=== PATIENT | female | born 1960 | race Caucasian/White ===

== ENCOUNTER 2017-01-17 13:48 | Inpatient (IN) | payer MEDICARE ==
[2017-01-17 14:18] LABS: ABSOLUTE LYMPHOCYTES (AUTO) 0.8 10^3/uL (0.5-4.7); ABSOLUTE MONOCYTES (AUTO) 0.3 10^3/uL (0.1-1.4); ABSOLUTE NEUT (AUTO) 9.8 10^3/uL (1.7-8.2); BASOPHILS % (AUTO) 0.4 % (0-2); HEMATOCRIT 42.7 % (36.0-47.0); HEMOGLOBIN 14.4 g/dL (12.0-15.5); HGB HCT DIFFERENCE 0.5; LYMPHOCYTES % (AUTO) 7.6 % (13-45); MEAN CORPUSCULAR HEMOGLOBIN 30.8 pg (27.0-33.4); MEAN CORPUSCULAR HGB CONC 33.8 g/dL (32.0-36.0); MEAN CORPUSCULAR VOLUME 91 fl (80-97); MONOCYTES % (AUTO) 2.7 % (3-13); RED BLOOD COUNT 4.68 10^6/uL (3.72-5.28); RED CELL DISTRIBUTION WIDTH 12.9 % (11.5-14.0); SEGMENTED NEUTROPHILS % (AUTO) 89.3 % (42-78)
[2017-01-17 14:26] LABS: PROTHROMBIN TIME 12.7 SEC (11.4-15.4)
[2017-01-17 14:27] LABS: PARTIAL THROMBOPLASTIN TIME 21.7 SEC (23.5-35.8)
[2017-01-17 14:37] LABS: ALANINE AMINOTRANSFERASE 28 U/L (9-52); ALBUMIN 3.2 g/dL (3.5-5.0); ALKALINE PHOSPHATASE 141 U/L (38-126); ANION GAP 11 (5-19); ASPARTATE AMINO TRANSFERASE 26 U/L (14-36); BILIRUBIN,DIRECT 0.5 mg/dL (0.0-0.4); BLOOD UREA NITROGEN 16 mg/dL (7-20); CALCIUM 9.6 mg/dL (8.4-10.2); CARBON DIOXIDE 27 mmol/L (22-30); CHLORIDE 102 mmol/L (98-107); CREATINE KINASE 70 U/L (30-135); CREATININE RESULT 0.91 mg/dL (0.52-1.25); SODIUM 140.1 mmol/L (137-145); TOTAL PROTEIN 6.8 g/dL (6.3-8.2)
[2017-01-17 14:45] LABS: GLUCOSE 549 mg/dL (75-110)
[2017-01-17] MEDS ORDERED: NORMAL SALINE 1000 ML 1,000 ML IV ONE (14:49)
[2017-01-17] MEDS ORDERED: LABETALOL HCL INJ 20 MG/4 ML DISP.SYRIN IV ONE (14:57)
[2017-01-17] MEDS ORDERED: INSULIN LISPRO 100 UNIT/ML 3 ML VIAL SUBCUT ONE (14:57)
--- NOTE | 2017-01-17 14:57 | ER Document Report ---
ED Neuro Symptoms/Deficit - General Chief Complaint: Fall Stated Complaint: DIFFICULTY BREATHING Time Seen by Provider: 01/17/17 14:02 Notes: The patient is a 56-year-old female, past medical history HTN, IDDM, HLD, multiple psychiatric disorders, presents with 6 hours of left-sided weakness and a right gaze that started after she hit the front part of her head earlier today. She is not on any blood thinners. Patient fluctuates between lucidity and agitation, which has been chronic according to her and father at bedside. She denies headache, LOC, neck pain, numbness, tingling, blurry vision , difficulty swallowing, chest pain or shortness of breath. - Related Data Allergies/Adverse Reactions: lorazepam [From Ativan] Allergy (Verified 01/17/17 16:16) Penicillins Allergy (Verified 01/17/17 16:18) Past Medical History - General Information source: Patient - Social History Smoking Status: Current Every Day Smoker Chew tobacco use (# tins/day): No Frequency of alcohol use: None Drug Abuse: None Family History: Reviewed & Not Pertinent - Past Medical History Cardiac Medical History: Reports: Hx Hypertension Neurological Medical History: Reports: Hx Migraine, Hx Seizures Endocrine Medical History: Reports: Hx Diabetes Mellitus Type 2 GI Medical History: Reports: Hx Gastroesophageal Reflux Disease Surgical Hx: Other Review of Systems - Review of Systems Notes: REVIEW OF SYSTEMS: CONSTITUTIONAL: -fevers, -chills EENT: +forced right gaze deviation, -eye pain, -difficulty swallowing, -nasal congestion CARDIOVASCULAR: -chest pain, -syncope. RESPIRATORY: -cough, -SOB GASTROINTESTINAL: -abdominal pain, -nausea, -vomiting, -diarrhea GENITOURINARY: -dysuria, -hematuria MUSCULOSKELETAL: -back pain, -neck pain SKIN: -rash or skin lesions. HEMATOLOGIC: -easy bruising or bleeding. LYMPHATIC: -swollen, enlarged glands. NEUROLOGICAL: -altered mental status or loss of consciousness, -headache, +left- sided weakness PSYCHIATRIC: -anxiety, -depression. ALL OTHER SYSTEMS REVIEWED AND NEGATIVE. Physical Exam - Vital signs Vitals: Pulse Resp BP Pulse Ox 102 H 20 216/93 H 98 01/17/17 14:08 01/17/17 14:08 01/17/17 14:08 01/17/17 14:08 - Notes Notes: PHYSICAL EXAMINATION: GENERAL: In no acute distress. Intermittent periods of agitation. HEAD: Small abrasion over nose. EYES: Pupils equal round and reactive to light, forced right eye gaze deviation , sclera anicteric, conjunctiva are normal. ENT: nares patent, oropharynx clear without exudates. Moist mucous membranes. NECK: Normal range of motion, supple without lymphadenopathy LUNGS: Breath sounds clear to auscultation bilaterally and equal. No wheezes rales or rhonchi. HEART: Tachycardia, regular rhythm ABDOMEN: Soft, nontender, normoactive bowel sounds. No guarding, no rebound. No masses appreciated. EXTREMITIES: Normal range of motion, no pitting or edema. No cyanosis. NEUROLOGICAL: Forced right eye deviation, 5/5 strength in RUE and RLE. 1/5 strength in LUE and LLE. No sensory changes. SKIN: Warm, Dry, normal turgor, no rashes or lesions noted. Course - Re-evaluation Re-evalutation: Patient has evidence of a right MCA stroke with right forced gaze deviation and loss of strength in her left arms and legs. She said that the onset of symptoms started 6 hours prior to arrival to the emergency room after she fell and hit her head. CT and CTA did not show any evidence of bleeds or clots. She is not a TPA candidate due to 6 hours of symptoms. ABCD2 score is 6. She did not take her lunchtime Humalog and this was provided to her due to her blood sugar of 500s. In addition, she is very hypertensive and cannot remember if she took her home blood pressure medications. Due to her intermittent agitation and uncooperativeness, a dose of Ativan was given to help obtain the CT reads. She had a brief period of hypoxia down to 75%, which quickly improved with jaw thrust and nasal cannula. Suspect a component of sleep apnea also. Unable to give her home blood pressure medications and IV labetalol only mildly improved her blood pressure. Started patient on Cardene drip because patient's blood pressure was in the 200s with a goal of keeping her SBP between 160-180 due to permissive hypertension in a suspected ischemic CVA. 01/17/17 19:[address] Vail and he has accepted patient to ICU. - Vital Signs Vital signs: Temp Pulse Resp BP Pulse Ox 100.3 F 102 H 23 H 219/101 H 100 01/17/17 14:14 01/17/17 14:14 01/17/17 14:24 01/17/17 14:24 01/17/17 14:24 - Laboratory Result Diagrams: 01/17/17 14:00 01/17/17 14:00 Laboratory results interpreted by me: 01/17/17 01/17/17 01/17/17 14:00 14:00 14:00 WBC 11.0 H Seg Neutrophils % 89.3 H Lymphocytes % 7.6 L Monocytes % 2.7 L Absolute Neutrophils 9.8 H APTT 21.7 L Glucose 549 H* Direct Bilirubin 0.5 H Alkaline Phosphatase 141 H Albumin 3.2 L - Diagnostic Test Radiology reviewed: Image reviewed, Reports reviewed - EKG Interpretation by Me EKG shows normal: Intervals, ST-T Waves Rate: Tachycardia [place]/QRS: Left axis deviation Voltage: Consistant with LVH Critical Care Note - Critical Care Note Total time excluding time spent on procedures (mins): 55 ED [employer]/Exc Criteria - Date/Time patient last known well: Date/Time: 01/17/17 07:00 - Date/Time patient arrived in ED: _: 01/17/17 13:45 - Inclusion Criteria: 1: Patient presented to ED within 3 hours of acute ischemic stroke symptom onset ? -: No 2: Did baseline CT exclude intracranial hemorrhage and/or other risk factors? -: Yes 3: Is the age of the patient 18 years of age or greater? -: Yes : If any of the above questions are answered "NO" then stop, patient is not a candidate for Alteplase, : If all of the above questions are answered "YES" then continue with Exclusion Criteria. - Exclusion Criteria: 1: Is there evidence of intracranial hemorrhage on baseline CT? 2: Is there suspicion of subarachnoid hemorrhage (even if CT negative)? 3: Is there a history of serious head trauma, recent previous stroke or TX within 3 months? 4: Does the patient have a clinical presentation consistent with TX or post-TX pericarditis? 5: Is there history of intracranial hemorrhage? 6: On repeated measurement is Systolic BP greater than 185mmHg or Diastolic BP greater that 110 mmHg and is aggressive treatment needed to reduce blood pressure to these limits (e.g. constant infusion of an anti-hypertensive)? 7: Did the patient awake with stroke symptoms? 8: Has the patient had a lumbar puncture or an arterial puncture at a non- compressile site within 7 days? 9: With in the last 14 days did the patient have surgery or major trauma? 10: Is the patient or less than 2 weeks? 11: Was there any active bleeding or acute trauma? 12: Does the patient have intracranial neoplasm, arteriovenous malformation or aneurysm? 13: Does the patient have abnormal glucose (less than 50 or greater than 400mg/ dl)? Record glucose in Comment. 14: Patient has rapidly improving symptoms at the time Alteplase is to be Administered. 15: Does the patient have any risks for bleeding, including but not limited to: a.: Current use of Coumadin with PT greater than 15 seconds or INR greater than 1.7. b.: Current use of Pradaxa (Dabigatran). c.: Heparin administereed within the past 48 hours and PTT elevated. d.: Platelet count less than 100,000/mm. e.: Major surgery or serious trauma within 14 days. f.: Gastrointestinal or gynecological urinary bleeding within 14 days. g.: Myocardial Infarction (TX) within 3 months. : If the answer to any of the above questions is "YES" then stop, the patient is not a candidate for Alteplase. : If the answer to all of the above questions is "NO" then the patient may be eligible for the Administration of Alteplase. : If the patient is noted to have seizure activity at onset of Stroke symptoms; Consult Neurologist for further evaluation. - The patient is: -: Included and is eligible to receive Alteplase. *Initiate bed placement at higher level of care* --: No Reviewd risks & benefits of thrombolytic therapy: I have reviewed the risks and benefits of thrombolytic therapy with the patient and/or his/her family. -: Excluded and not eligible to receive Alteplase for the above exclusions. -: Excluded and not eligible to receive Alteplase for other reasons (specify in comments): - Diagnosis of TIA: -: Patient presented with transient symptoms that are now resolved and no other neurologic findings are currently present. List symptoms in comments. -: Patient is NOT a candidate for tPA. -: ____(put name in comment) has been consulted for admission and continued evaluation of risk factor assessment. Comment: [facility] ED NIH Stroke Scale - NIH Stroke Scale When completed:: Before Alteplase *: 1. NIH scale should be completed with appropriate accompanying assessment tools. *: 2. The NIH should reflect what the patient is capable of doing and should not be coached by the clinician. 1a. Level of Consciousness: 0=Alert;keenly responsive -: 1=Drowsy -: 2=Obtunded -: 3=Coma/unresponsive or reflex to noxious stimuli. 1a. Responses: 0 1b. Orientation Questions: a. What month is it? -: b. How old are you? -: 0=Answers both questions correctly. -: 1=Answers one question correctly or patient is intubated or has orotracheal trauma. -: 2=Answers neither question correctly. 1b. Responses: 0 1c. Response to commands: a. Open and close eyes? -: b. Legal Department Manager and release hand? -: Credit is given despite weakness. Demonstration of task is permitted. Substitute command if hands cannot be used. -: 0=Performs both tasks correctly -: 1=Performs one task correctly -: 2=Performs neither task correctly 1c. Responses: 0 2. Gaze: Establish eye contact and instruct patient to "Follow my finger" -: 0=Normal -: 1=Partial gaze palsy. Gaze is abnormal in one or both eyes, but where forced deviation or total gaze paresis is not present. -: 2=Forced deviation or total gaze paresis. 2. Responses: 2 3. Visual [place]: Sees fingers in all four quadrants. -: 0=No visual loss. -: 1=Partial hemianopsia. -: 2=Complete hemianopsia. -: 3=Bilateral hemianopsia (including Cortical blindness) 3. Responses: 0 4. Facial Movement: Instruct patient to: -: a. Show me your teeth -: b. Raise your eyebrows -: c. Close your eyes -: d. Smile -: 0=Normal symmetrical movement -: 1=Minor paralysis (flattened nasolabial fold, asymmetry on smiling). -: 2=Partial paralysis (total or near total paralysis of lower face). -: 3=Complete paralysis of upper and lower face 4. Responses: 0 5. Motor functions (left arm): Alternate sides and extend each arm with palms down (90 degrees if sitting or 45 degrees for supine). -: 0=No drift;limb holds for full 10 seconds. -: 1=Drift; limb holds but drifts down before full 10 seconds, but does not hit bed. -: 2=Some effort against gravity; limb cannot get to or maintain position. -: 3=No effort against gravity; limb falls. -: 4=No movement. -: UN=Amputation, joint fusion, explain in comments. 5. Responses (left arm): 4 5. Motor Functions (right arm): Alternate sides and extend each arm with palms down (90 degrees if sitting or 45 degrees for supine). -: 0=No drift;limb holds for full 10 seconds. -: 1=Drift; limb holds but drifts down before full 10 seconds, but does not hit bed. -: 2=Some effort against gravity; limb cannot get to or maintain position. -: 3=No effort against gravity; limb falls. -: 4=No movement. -: UN=Amputation, joint fusion, explain in comments. 5. Responses (right arm): 0 6. Motor Functions (left leg): With patient lying supine, alternate sides and extend each leg (30 degrees always while supine). -: 0=No drift, leg holds position for full 5 seconds -: 1=Drift; leg falls before full 5 seconds but does not hit bed. -: 2=Some effort against gravity, leg falls to bed but some effort against gravity. -: 3=No effort against gravity, leg falls to bed immediately. -: 4=No movement. -: UN=Amputation, joint fusion; explain in comments. 6. Responses (left leg): 4 6. Motor Functions (right leg): With patient lying supine, alternate sides and extend each leg (30 degrees always while supine). -: 0=No drift, leg holds position for full 5 seconds -: 1=Drift; leg falls before full 5 seconds but does not hit bed. -: 2=Some effort against gravity, leg falls to bed but some effort against gravity. -: 3=No effort against gravity, leg falls to bed immediately. -: 4=No movement. -: UN=Amputation, joint fusion; explain in comments. 6. Responses (right leg): 0 7. Limb Ataxia: With eyes open instruct patient to: -: a. "Touch your finger to your nose". -: b. "Touch your heel to your pisano" -: 0=Absent -: 1=Present in one limb. -: 2=Present in two limbs. -: UN=Amputation or joint fusion; explain in comments. 7. Responses: 0 - Unable to test in left arm 8. Sensory: Test sensation using pinprick or noxious stimuli. Test as many body parts as possible. -: 0=Normal;no sensory loss -: 1=Mile to moderate sensory loss (patient feels pin prick but is less sharp on affected side). -: 2=Severe or total sensory loss. 8. Responses: 0 9. Best Language: Instruct patient to: -: a. "Describe what you see in this picture." -: b. "Name the items in this picture." -: c. "Read these sentences." -: 0=No aphasia, normal -: 1=Mild to moderate aphasia. -: 2=Severe aphasia -: 3=Mute, global aphasia, no usable speech or auditory comprehension. 9. Responses: 0 10. Articulation, Dysarthia: Instruct patient to: -: "Read these words" or "Repeat these words" -: 0=Normal -: 1=Mild to moderate; patient may slur some words but can be understood without difficulty. -: 2=Severe; patients speech so slurred as to be unintelligible in the absence of dysphasia. -: UN=Intubated or other physical barrier, explain in comments. 10. Responses: 0 11. Extinction or inattention: 0=No abnormality -: 1= Visual, tactile, auditory, spatial, or personal inattention or extinction to bilateral simulation in one or the sensory modalities. -: 2=Profound jesús-inattention or jesús-inattention to more than one modality; does not recognize own hand. 11. Responses: 0 Total Score: 10 Discharge - Discharge Clinical Impression: Hyperglycemia CVA (cerebral vascular accident) Qualifiers: CVA mechanism: unspecified Qualified Code(s): I63.9 - Cerebral infarction, unspecified Hypertension Qualifiers: Hypertension type: unspecified secondary hypertension Qualified Code(s): I15.9 - Secondary hypertension, unspecified Condition: Serious Disposition: ADMITTED INPATIENT Admitting Provider: [facility] Unit Admitted: ICU
[2017-01-17] MEDS ORDERED: LORAZEPAM INJ 2 MG/1 ML VIAL IV ONE (15:08)
[2017-01-17] MEDS: NICARDIPINE HCL RTU, ISO-OS 200 ML IV PRN (16:44)
[2017-01-17] MEDS ORDERED: HALOPERIDOL LACTATE INJ 5 MG/1 ML VIAL IM ONE (16:58)
[2017-01-17 17:47] LABS: APPEARANCE,URINE CLEAR; BILIRUBIN,URINE NEGATIVE (NEGATIVE); GLUCOSE, URINE >=500 mg/dL (NEGATIVE); KETONES,URINE 20 mg/dL (NEGATIVE); LEUKOCYTE ESTERASE,URINE NEGATIVE (NEGATIVE); NITRITE,URINE NEGATIVE (NEGATIVE); PROTEIN,URINE >=500 mg/dL (NEGATIVE); URINE SPECIFIC GRAVITY 1.031; UROBILINOGEN,URINE NEGATIVE mg/dL (<2.0)
[2017-01-17 18:07] LABS: URINE BARBITURATES SCREEN NEGATIVE; URINE METHADONE SCREEN NEGATIVE; URINE OPIATES LOW NEGATIVE; URINE PHENCYCLIDINE SCREEN NEGATIVE
[2017-01-17] MEDS ORDERED: INSULIN REG, HUMAN 100 UNIT/ML 3 ML VIAL (PYX) IV ONE (18:58)
[2017-01-17] MEDS ORDERED: PHARMACY COMMUNICATION ORDER MC NR (20:00)
[2017-01-17] MEDS ORDERED: DEXTROSE 40% GEL 15 GM TUBE PO PRN ×2 (20:00)
[2017-01-17] MEDS ORDERED: GLUCAGON,HUMAN RECOMB 1 MG INJ IM PRN (20:00)
[2017-01-17] MEDS ORDERED: ONDANSETRON HCL INJ/PF 4 MG/2 ML SDV IV PRN (20:00)
[2017-01-17] MEDS ORDERED: DEXTROSE 50%-WATER 25 GM/50 ML DISP.SYRIN IV PRN ×2 (20:00)
[2017-01-17 22:32] LABS: CREATINE KINASE MB 0.49 ng/mL (<4.55)
[2017-01-17 22:40] LABS: TROPONIN I 0.169 ng/mL
[2017-01-17] MEDS: HEPARIN SOD (PORCINE) 5,000 UNIT/ML 1 ML SYRINGE SUBCUT SCH (22:49)
[2017-01-17] MEDS: ATORVASTATIN CALCIUM 80 MG TABLET NG SCH (22:50)
[2017-01-18] MEDS: INSULIN LISPRO 100 UNIT/ML 3 ML VIAL SUBCUT PRN ×4 (00:30→17:55)
[2017-01-18 04:08] LABS: ABSOLUTE BASOPHILS # (AUTO) 0.1 10^3/uL (0.0-0.2); ABSOLUTE LYMPHOCYTES (AUTO) 1.7 10^3/uL (0.5-4.7); ABSOLUTE MONOCYTES (AUTO) 0.9 10^3/uL (0.1-1.4); ABSOLUTE NEUT (AUTO) 10.3 10^3/uL (1.7-8.2); BASOPHILS % (AUTO) 0.5 % (0-2); EOSINOPHILS % (AUTO) 0.1 % (0-6); HEMATOCRIT 39.2 % (36.0-47.0); HEMOGLOBIN 13.6 g/dL (12.0-15.5); HGB HCT DIFFERENCE 1.6; LYMPHOCYTES % (AUTO) 12.9 % (13-45); MEAN CORPUSCULAR HEMOGLOBIN 30.7 pg (27.0-33.4); MEAN CORPUSCULAR HGB CONC 34.7 g/dL (32.0-36.0); MEAN CORPUSCULAR VOLUME 89 fl (80-97); MONOCYTES % (AUTO) 6.9 % (3-13); RED BLOOD COUNT 4.42 10^6/uL (3.72-5.28); RED CELL DISTRIBUTION WIDTH 12.7 % (11.5-14.0); SEGMENTED NEUTROPHILS % (AUTO) 79.6 % (42-78); WHITE BLOOD COUNT 12.9 10^3/uL (4.0-10.5)
[2017-01-18 04:58] LABS: ANION GAP 9 (5-19); BLOOD UREA NITROGEN 24 mg/dL (7-20); CALCIUM 9.1 mg/dL (8.4-10.2); CARBON DIOXIDE 24 mmol/L (22-30); CHLORIDE 107 mmol/L (98-107); GLUCOSE 349 mg/dL (75-110); POTASSIUM 3.4 mmol/L (3.6-5.0); SODIUM 140.3 mmol/L (137-145)
[2017-01-18 05:13] LABS: CREATINE KINASE 2502 U/L (30-135)
[2017-01-18 05:15] LABS: CREATINE KINASE MB 4.69 ng/mL (<4.55); TROPONIN I 0.339 ng/mL
[2017-01-18] MEDS: NICARDIPINE HCL RTU, ISO-OS 200 ML IV PRN ×4 (07:10→21:06)
[2017-01-18] MEDS: HEPARIN SOD (PORCINE) 5,000 UNIT/ML 1 ML SYRINGE SUBCUT SCH ×3 (07:31→22:01)
[2017-01-18] MEDS ORDERED: LORAZEPAM INJ 2 MG/1 ML VIAL ONE (07:52)
--- NOTE | 2017-01-18 08:18 | PDOC PROGRESS REPORT ---
Subjective Progress Note for:: 01/18/17 Subjective:: Patient admitted for stroke-like symptoms, with left-sided weakness more on the upper extremity, and preferential gaze to the right. Patient noted to have tremors on the right side more and upper extremity, then the lower extremity. Patient had CTA of the head that was negative, head CT scan showed no acute stroke or bleeding, neck CTA shows no carotid dissection. No TPA was administered. Patient admitted to the intensive care unit, placed on a nicardipine drip, still able to answer some questions. Able to move right upper extremity and right lower extremity and left lower extremity. Staff reports fever. History reviewed. Patient apparently fell at home and reportedly hit her head. Medications reviewed. History and examination reviewed. Interval history reviewed. Physical Exam Vital Signs: Temp Pulse Resp BP Pulse Ox 102.1 F H 113 H 23 H 188/75 H 97 01/18/17 08:00 01/18/17 08:00 01/18/17 08:00 01/18/17 08:00 01/18/17 08:00 Intake & Output 01/17/17 01/18/17 01/19/17 06:59 06:59 06:59 Intake Total 1043 Output Total 1050 100 Balance -7 -100 Weight 103.5 kg General appearance: PRESENT: no acute distress, obese Head exam: PRESENT: normocephalic Eye exam: PRESENT: conjunctiva pink, other - Preferential right-sided gaze. ABSENT: scleral icterus Mouth exam: PRESENT: moist, neck supple Neck exam: ABSENT: JVD Respiratory exam: PRESENT: clear to auscultation kayleen. ABSENT: rhonchi, wheezes Cardiovascular exam: PRESENT: RRR, tachycardia GI/Abdominal exam: PRESENT: soft. ABSENT: distended, tenderness Extremities exam: ABSENT: pedal edema Neurological exam: PRESENT: awake, other - Able to follow simple commands occasionally Psychiatric exam: ABSENT: agitated Focused psych exam: ABSENT: restlessness Skin exam: PRESENT: dry, warm. ABSENT: cyanosis Results Laboratory Results: 01/18/17 03:57 01/18/17 03:57 01/18/17 01/18/17 03:57 03:57 WBC 12.9 H RBC 4.42 Hgb 13.6 Hct 39.2 MCV 89 MCH 30.7 MCHC 34.7 RDW 12.7 Plt Count 230 Seg Neutrophils % 79.6 H Lymphocytes % 12.9 L Monocytes % 6.9 Eosinophils % 0.1 Basophils % 0.5 Absolute Neutrophils 10.3 H Absolute Lymphocytes 1.7 Absolute Monocytes 0.9 Absolute Eosinophils 0.0 Absolute Basophils 0.1 Sodium 140.3 Potassium 3.4 L Chloride 107 Carbon Dioxide 24 Anion Gap 9 BUN 24 H Creatinine 1.50 H Est GFR ( Amer) 43 L Est GFR (Non-Af Amer) 36 L Glucose 349 H Calcium 9.1 01/17/17 01/17/17 01/18/17 21:54 21:54 03:57 Creatine Kinase 95 CK-MB (CK-2) 0.49 4.69 H Troponin I 0.169 0.339 01/18/17 03:57 Creatine Kinase 2502 H CK-MB (CK-2) Troponin I Impressions: Head CT 01/17/17 14:02 IMPRESSION: Limited study due to motion artifact. No significant intracranial abnormalities were identified. Chest X-Ray 01/17/17 14:08 IMPRESSION: NO ACUTE RADIOGRAPHIC FINDING IN THE CHEST. Head CTA 01/17/17 14:37 IMPRESSION: NO CTA EVIDENCE OF STENOSIS OR ANEURYSM OF THE DEERING OF MADR[place]. Neck CTA 01/17/17 14:37 IMPRESSION: MINIMAL CALCIFIED PLAQUE. OTHERWISE UNREMARKABLE CTA OF THE EXTRA- CRANIAL CAROTID AND VERTEBRAL ARTERIES. NO STENOSIS OR DISSECTION. KUB X-Ray 01/17/17 20:05 IMPRESSION: NG tube with the tip at the GE junction and the side hole at the distal esophagus, advancement by approximately 10 cm recommended. Hepatomegaly. Increased density overlying the right renal shadow, may represent renal calculus versus debris within the bowel. Assessment & Plan - Diagnosis (1) Hypertensive emergency Is this a current diagnosis for this admission?: Yes (2) Left-sided weakness Is this a current diagnosis for this admission?: Yes (3) Hypokalemia Is this a current diagnosis for this admission?: Yes (4) Fever Qualifiers: Fever type: unspecified Qualified Code(s): R50.9 - Fever, unspecified Is this a current diagnosis for this admission?: Yes (5) Diabetes mellitus type 2 in obese Is this a current diagnosis for this admission?: Yes (6) Seizure disorder Is this a current diagnosis for this admission?: Yes (7) Hyperlipidemia Qualifiers: Hyperlipidemia type: unspecified Qualified Code(s): E78.5 - Hyperlipidemia, unspecified Is this a current diagnosis for this admission?: Yes (8) GERD (gastroesophageal reflux disease) Qualifiers: Esophagitis presence: without esophagitis Qualified Code(s): K21.9 - Gastro-esophageal reflux disease without esophagitis Is this a current diagnosis for this admission?: Yes - Time Time Spent with patient: 35 or more minutes - Plan Summary Plan Summary: Obtain MRI of the brain. Obtain EEG. Obtain her medications from family or her pharmacist. Patient had a history of seizure. However she is allergic to Ativan. We will obtain serial cardiac enzymes, elevation could be secondary to stroke. We will likewise obtain echocardiogram, obtain cardiology opinion about the abnormal troponins, continue antiplatelet therapy, correrct hypokalemia and monitor electrolytes, obtain urine culture and blood culture, obtain renal ultrasound, continue hydration, continue nicardipine drip for now.
[2017-01-18] MEDS: ACETAMINOPHEN 325 MG TABLET NG PRN ×2 (08:45→15:37)
[2017-01-18] MEDS: POTASSI CL 20 MEQ/50 ML RIDER 20 MEQ/50 ML RTUPB IV SCH ×2 (08:45→09:48)
[2017-01-18] MEDS: NORMAL SALINE 1000 ML 1,000 ML IV PRN ×2 (09:51→21:08)
[2017-01-18] MEDS ORDERED: ASPIRIN 325 MG TABLET, ENT COATED PO SCH (10:00)
[2017-01-18 10:59] LABS: CREATINE KINASE MB 3.21 ng/mL (<4.55); TROPONIN I 0.524 ng/mL
[2017-01-18] MEDS ORDERED: LEVETIRACETAM 1000 MG/NACL-ISO 1,000 MG/100 ML RTUPB IV ONE (11:30)
[2017-01-18] MEDS: ASPIRIN 325 MG TABLET NG SCH (11:32)
--- NOTE | 2017-01-18 11:46 | EKG REPORT ---
SEVERITY:- ABNORMAL ECG - SINUS TACHYCARDIA LEFT AXIS DEVIATION LEFT VENTRICULAR HYPERTROPHY ANTERIOR Q WAVES, POSSIBLY DUE TO LVH : Confirmed by: Suma Newsome 18-Jan-2017 11:46:02
--- NOTE | 2017-01-18 11:46 | EKG REPORT ---
SEVERITY:- ABNORMAL ECG - SINUS TACHYCARDIA LEFT AXIS DEVIATION LVH WITH SECONDARY REPOLARIZATION ABNORMALITY VS ISCHEMIA LATERAL INFARCT, OLD ANTERIOR Q WAVES, POSSIBLY DUE TO LVH : Confirmed by: Suma Newsome 18-Jan-2017 11:45:42
[2017-01-18] MEDS: HYDROCODONE/ACETAMINOPHEN 10-325 MG TABLET NG PRN ×2 (15:43→22:01)
--- NOTE | 2017-01-18 20:12 | PDOC H&P ---
History of Present Illness Admission Date/PCP: 01/17/17 19:47 Patient complains of: Altered Mental status History of Present Illness: BETH OLIVEROS is a 56 year old female with a past medical history of hypertension , diabetes, depression, schizophrenia and morbid obesity. She had been her usual state of health until an abrupt change of status and a fall without physical injury but has had left-sided jesús-neglect right-sided gaze and left- sided weakness for proximally 6 hours prior to presentation the emergency room. Where she's found to have a blood pressure of 216/[address] of the head and referred to the hospitalist for admission. Patient is started on Cardene, awake but aphasic, protecting her airway. There is no family available for history. Past Medical History Cardiac Medical History: Reports: Hypertension Neurological Medical History: Reports: Migraine, Seizures Endocrine Medical History: Reports: Diabetes Mellitus Type 2 GI Medical History: Reports: Gastroesophageal Reflux Disease Psychiatric Medical History: Reports: Depression Social History Information Source: Emergency Med Personnel, [facility] Records Smoking Status: Current Every Day Smoker Frequency of Alcohol Use: None Drugs: None - Advance Directive Resuscitation Status: Full Code Family History Family History: Reviewed & Not Pertinent Parental Family History Reviewed: No - unobtainable Children Family History Reviewed: No - Unobtainable Sibling(s) Family History Reviewed.: No Medication/Allergy Home Medications: Ergocalciferol (Vitamin D2) [Vitamin D2] 50,000 unit PO ASDIR PRN 01/18/17 Furosemide [Lasix 20 mg Tablet] 40 mg PO BIDP PRN 01/18/17 Losartan Potassium [Cozaar 50 mg Tablet] 50 mg PO DAILY 01/18/17 Spironolactone [Aldactone] 100 mg PO DAILY 01/18/17 Topiramate [Topamax] 200 mg PO Q12 01/18/17 Allergies/Adverse Reactions: lorazepam [From Ativan] Allergy (Verified 01/17/17 16:16) Penicillins Allergy (Verified 01/17/17 16:18) Review of Systems ROS unobtainable: Due to mental status - With Aphasia Physical Exam Vital Signs: Temp Pulse Resp BP Pulse Ox 100.4 F 97 18 148/65 H 96 01/18/17 19:51 01/18/17 19:51 01/18/17 19:51 01/18/17 19:51 01/18/17 18:00 Intake & Output 01/17/17 01/18/17 01/19/17 11:59 11:59 11:59 Intake Total 1043 554 Output Total 1150 290 Balance -107 264 Weight 103.5 kg General appearance: PRESENT: disheveled, hard of hearing, morbidly obese, well- developed, well-nourished Head exam: PRESENT: atraumatic, normocephalic Eye exam: PRESENT: conjunctiva pink, PERRLA, other - Right-sided gaze left- sided neglect. ABSENT: scleral icterus Ear exam: PRESENT: normal external ear exam Mouth exam: PRESENT: moist, tongue midline Neck exam: ABSENT: carotid bruit, JVD, lymphadenopathy, thyromegaly Respiratory exam: PRESENT: clear to auscultation kayleen. ABSENT: rales, rhonchi, wheezes Cardiovascular exam: PRESENT: RRR. ABSENT: diastolic murmur, rubs, systolic murmur Pulses: PRESENT: normal dorsalis pedis pul Vascular exam: PRESENT: normal capillary refill GI/Abdominal exam: PRESENT: normal bowel sounds, soft. ABSENT: distended, guarding, mass, organolmegaly, rebound, tenderness Rectal exam: PRESENT: deferred Extremities exam: PRESENT: other - Left side flaccid. ABSENT: calf tenderness, clubbing, pedal edema Musculoskeletal exam: PRESENT: other - Left side flaccid. ABSENT: ambulatory, deformity, dislocation Neurological exam: PRESENT: alert, awake, oriented to person, oriented to place , oriented to time, oriented to situation, CN II-XII grossly intact. ABSENT: motor sensory deficit Psychiatric exam: PRESENT: other - Unable to ascertain not following commands. ABSENT: homicidal ideation, suicidal ideation Skin exam: PRESENT: dry, intact, warm. ABSENT: cyanosis, rash Results Laboratory Results: 01/18/17 03:57 01/18/17 03:57 01/18/17 01/18/17 03:57 03:57 WBC 12.9 H RBC 4.42 Hgb 13.6 Hct 39.2 MCV 89 MCH 30.7 MCHC 34.7 RDW 12.7 Plt Count 230 Seg Neutrophils % 79.6 H Lymphocytes % 12.9 L Monocytes % 6.9 Eosinophils % 0.1 Basophils % 0.5 Absolute Neutrophils 10.3 H Absolute Lymphocytes 1.7 Absolute Monocytes 0.9 Absolute Eosinophils 0.0 Absolute Basophils 0.1 Sodium 140.3 Potassium 3.4 L Chloride 107 Carbon Dioxide 24 Anion Gap 9 BUN 24 H Creatinine 1.50 H Est GFR ( Amer) 43 L Est GFR (Non-Af Amer) 36 L Glucose 349 H Calcium 9.1 01/17/17 01/17/17 01/18/17 21:54 21:54 03:57 Creatine Kinase 95 CK-MB (CK-2) 0.49 4.69 H Troponin I 0.169 0.339 01/18/17 01/18/17 01/18/17 03:57 10:05 10:05 Creatine Kinase 2502 H 2447 H CK-MB (CK-2) 3.21 Troponin I 0.524 01/18/17 01/18/17 01/18/17 17:10 17:10 17:10 Creatine Kinase 2444 H CK-MB (CK-2) 2.07 Troponin I 0.667 Impressions: Head CT 01/17/17 14:02 IMPRESSION: Limited study due to motion artifact. No significant intracranial abnormalities were identified. Chest X-Ray 01/17/17 14:08 IMPRESSION: NO ACUTE RADIOGRAPHIC FINDING IN THE CHEST. Head CTA 01/17/17 14:37 IMPRESSION: NO CTA EVIDENCE OF STENOSIS OR ANEURYSM OF THE [place]. Neck CTA 01/17/17 14:37 IMPRESSION: MINIMAL CALCIFIED [place]. OTHERWISE UNREMARKABLE CTA OF THE EXTRA- CRANIAL CAROTID AND VERTEBRAL ARTERIES. NO STENOSIS OR DISSECTION. KUB X-Ray 01/17/17 20:05 IMPRESSION: NG tube with the tip at the GE junction and the side hole at the distal esophagus, advancement by approximately 10 cm recommended. Hepatomegaly. Increased density overlying the right renal shadow, may represent renal calculus versus debris within the bowel. Assessment & Plan - Diagnosis (1) CVA (cerebral vascular accident) Qualifiers: CVA mechanism: unspecified Qualified Code(s): I63.9 - Cerebral infarction, unspecified Is this a current diagnosis for this admission?: YesPlan: ICU admission for supportive care anticipate significant finding on MRI or repeat CT. IV Cardene with permissive hypertension, aspirin and Lipitor via NG tube. Neurology consult (2) Diabetes mellitus type 2 in obese Is this a current diagnosis for this admission?: YesPlan: Humalog sliding scale every 6 hours while nothing by mouth (3) Hypertensive emergency Is this a current diagnosis for this admission?: YesPlan: IV Cardene when necessary hydralazine permissive hypertension (4) Hypokalemia Is this a current diagnosis for this admission?: YesPlan: Replete evaluate magnesium and reevaluation of chemistry - Time Time Spent: 50 to 70 Minutes - Inpatient Certification Medical Necessity: Need Close Monitoring Due to Risk of Patient Decompensation
[2017-01-18] MEDS ORDERED: MORPHINE SULFATE 10 MG/ML INJ ONE (21:32)
[2017-01-18] MEDS ORDERED: LEVETIRACETAM 500 MG TABLET PO SCH (22:00)
[2017-01-18] MEDS: ATORVASTATIN CALCIUM 80 MG TABLET NG SCH (22:00)
[2017-01-18] MEDS ORDERED: (PENDING PHARMACY ID) (Topiramate [Topamax] 200 MG) PO SCH (22:00)
[2017-01-18] MEDS: TOPIRAMATE 100 MG TABLET PO SCH (22:01)
[2017-01-18] MEDS ORDERED: MORPHINE SULFATE 10 MG/ML INJ INJ PRN (23:20)
[2017-01-18] MEDS ORDERED: PHENYTOIN SODIUM INJ/PF 250 MG/5 ML SDV IV PRN (23:22)
[2017-01-18] MEDS ORDERED: PHENYTOIN SODIUM 1,000 MG in NORMAL SALINE 250 ML IV ONE (23:30)
[2017-01-19 00:06] LABS: CREATINE KINASE MB 1.93 ng/mL (<4.55); TROPONIN I 0.421 ng/mL
[2017-01-19] MEDS: INSULIN LISPRO 100 UNIT/ML 3 ML VIAL SUBCUT PRN ×4 (02:51→23:34)
[2017-01-19] MEDS ORDERED: HYDROMORPHONE HCL INJ/PF 2 MG/ML AMPULE ONE (04:57)
[2017-01-19 05:13] LABS: ABSOLUTE BASOPHILS # (AUTO) 0.1 10^3/uL (0.0-0.2); ABSOLUTE LYMPHOCYTES (AUTO) 2.2 10^3/uL (0.5-4.7); ABSOLUTE MONOCYTES (AUTO) 0.8 10^3/uL (0.1-1.4); ABSOLUTE NEUT (AUTO) 9.5 10^3/uL (1.7-8.2); HEMATOCRIT 34.6 % (36.0-47.0); HEMOGLOBIN 11.7 g/dL (12.0-15.5); HGB HCT DIFFERENCE 0.5; LYMPHOCYTES % (AUTO) 17.2 % (13-45); MEAN CORPUSCULAR HEMOGLOBIN 31.1 pg (27.0-33.4); MEAN CORPUSCULAR HGB CONC 33.9 g/dL (32.0-36.0); MEAN CORPUSCULAR VOLUME 92 fl (80-97); MONOCYTES % (AUTO) 6.2 % (3-13); RED BLOOD COUNT 3.78 10^6/uL (3.72-5.28); RED CELL DISTRIBUTION WIDTH 12.9 % (11.5-14.0); SEGMENTED NEUTROPHILS % (AUTO) 75.6 % (42-78); WHITE BLOOD COUNT 12.6 10^3/uL (4.0-10.5)
[2017-01-19] MEDS ORDERED: HYDROMORPHONE HCL INJ/PF 2 MG/ML AMPULE SUBCUT ONE (05:30)
[2017-01-19 05:35] LABS: ANION GAP 7 (5-19); BLOOD UREA NITROGEN 33 mg/dL (7-20); CALCIUM 8.2 mg/dL (8.4-10.2); CARBON DIOXIDE 21 mmol/L (22-30); CHLORIDE 112 mmol/L (98-107); CREATININE RESULT 1.64 mg/dL (0.52-1.25); GLUCOSE 378 mg/dL (75-110); POTASSIUM 3.7 mmol/L (3.6-5.0); SODIUM 140.3 mmol/L (137-145)
[2017-01-19] MEDS: HEPARIN SOD (PORCINE) 5,000 UNIT/ML 1 ML SYRINGE SUBCUT SCH ×3 (06:32→21:03)
--- NOTE | 2017-01-19 09:04 | PDOC PROGRESS REPORT ---
Subjective Progress Note for:: 01/19/17 Subjective:: Patient reportedly more awake and alert and responsive. Able to talk and engage in conversation as reported. No more preferentially gazing noted, able to move left upper extremity now, still having some seizure-like activity, given Dilantin last night. Patient started on Keppra. No reported temperature spikes, nausea or vomiting, diarrhea, shortness of breath. Physical Exam Vital Signs: Temp Pulse Resp BP Pulse Ox 98.1 F 70 9 L 138/67 H 98 01/19/17 07:55 01/19/17 07:55 01/19/17 07:55 01/19/17 07:55 01/19/17 07:55 Intake & Output 01/18/17 01/19/17 01/20/17 06:59 06:59 06:59 Intake Total 1043 2985 Output Total 1050 890 46 Balance -7 2094 -46 Weight 103.5 kg 103.5 kg General appearance: PRESENT: no acute distress, obese Head exam: PRESENT: normocephalic Eye exam: PRESENT: conjunctiva pink Mouth exam: PRESENT: moist, neck supple Neck exam: ABSENT: JVD Respiratory exam: PRESENT: clear to auscultation kayleen. ABSENT: rhonchi, wheezes Cardiovascular exam: PRESENT: RRR. ABSENT: gallop GI/Abdominal exam: PRESENT: soft. ABSENT: distended, tenderness Extremities exam: PRESENT: other - Trace pretibial edema Neurological exam: PRESENT: alert, awake Skin exam: PRESENT: dry, warm. ABSENT: cyanosis Results Laboratory Results: 01/19/17 04:15 01/19/17 04:15 01/19/17 01/19/17 04:15 04:15 WBC 12.6 H RBC 3.78 Hgb 11.7 L Hct 34.6 L MCV 92 MCH 31.1 MCHC 33.9 RDW 12.9 Plt Count 185 Seg Neutrophils % 75.6 Lymphocytes % 17.2 Monocytes % 6.2 Eosinophils % 0.0 Basophils % 1.0 Absolute Neutrophils 9.5 H Absolute Lymphocytes 2.2 Absolute Monocytes 0.8 Absolute Eosinophils 0.0 Absolute Basophils 0.1 Sodium 140.3 Potassium 3.7 Chloride 112 H Carbon Dioxide 21 L Anion Gap 7 BUN 33 H Creatinine 1.64 H Est GFR ( Amer) 39 L Est GFR (Non-Af Amer) 32 L Glucose 378 H Calcium 8.2 L 01/17/17 01/17/17 01/18/17 21:54 21:54 03:57 Creatine Kinase 95 CK-MB (CK-2) 0.49 4.69 H Troponin I 0.169 0.339 01/18/17 01/18/17 01/18/17 03:57 10:05 10:05 Creatine Kinase 2502 H 2447 H CK-MB (CK-2) 3.21 Troponin I 0.524 01/18/17 01/18/17 01/18/17 17:10 17:10 17:10 Creatine Kinase 2444 H CK-MB (CK-2) 2.07 Troponin I 0.667 01/18/17 01/18/17 23:31 23:31 Creatine Kinase 1567 H CK-MB (CK-2) 1.93 Troponin I 0.421 Impressions: Head CT 01/17/17 14:02 IMPRESSION: Limited study due to motion artifact. No significant intracranial abnormalities were identified. Chest X-Ray 01/17/17 14:08 IMPRESSION: NO ACUTE RADIOGRAPHIC FINDING IN THE CHEST. Head CTA 01/17/17 14:37 IMPRESSION: NO CTA EVIDENCE OF STENOSIS OR ANEURYSM OF THE [place]. Neck CTA 01/17/17 14:37 IMPRESSION: MINIMAL CALCIFIED [place]. OTHERWISE UNREMARKABLE CTA OF THE EXTRA- CRANIAL CAROTID AND VERTEBRAL ARTERIES. NO STENOSIS OR DISSECTION. KUB X-Ray 01/17/17 20:05 IMPRESSION: NG tube with the tip at the GE junction and the side hole at the distal esophagus, advancement by approximately 10 cm recommended. Hepatomegaly. Increased density overlying the right renal shadow, may represent renal calculus versus debris within the bowel. Assessment & Plan - Diagnosis (1) Hypertensive emergency Is this a current diagnosis for this admission?: Yes (2) Left-sided weakness Is this a current diagnosis for this admission?: Yes (3) Hypokalemia Is this a current diagnosis for this admission?: Yes (4) Fever Qualifiers: Fever type: unspecified Qualified Code(s): R50.9 - Fever, unspecified Is this a current diagnosis for this admission?: Yes (5) Diabetes mellitus type 2 in obese Is this a current diagnosis for this admission?: Yes (6) Seizure disorder Is this a current diagnosis for this admission?: Yes (7) Hyperlipidemia Qualifiers: Hyperlipidemia type: unspecified Qualified Code(s): E78.5 - Hyperlipidemia, unspecified Is this a current diagnosis for this admission?: Yes (8) GERD (gastroesophageal reflux disease) Qualifiers: Esophagitis presence: without esophagitis Qualified Code(s): K21.9 - Gastro-esophageal reflux disease without esophagitis Is this a current diagnosis for this admission?: Yes - Time Time Spent with patient: 25-34 minutes - Plan Summary Plan Summary: Continue Keppra but changed to intravenous, awaiting MRI of the brain as well as EEG. Blood pressure has improved, on nicardipine drip, we will discontinue the drip. We will increase intravenous fluids and monitor creatinine as well . Patient has allergy to lorazepam. We will continue to monitor.
[2017-01-19] MEDS ORDERED: LEVETIRACETAM INJ/PF 500 MG/5 ML SDV IV SCH (10:00)
[2017-01-19] MEDS: LEVETIRACETAM 500 MG/NACL-ISO 500 MG/100 ML RTUPB IV SCH ×2 (10:54→21:04)
[2017-01-19] MEDS: TOPIRAMATE 100 MG TABLET PO SCH ×2 (10:55→21:16)
[2017-01-19] MEDS: ASPIRIN 325 MG TABLET NG SCH (10:55)
[2017-01-19] MEDS: LOSARTAN POTASSIUM 50 MG TABLET PO SCH (10:55)
[2017-01-19] MEDS: NORMAL SALINE 1000 ML 1,000 ML IV PRN ×2 (12:14→21:25)
[2017-01-19] MEDS ORDERED: MORPHINE SULFATE 10 MG/ML INJ INJ PRN (15:21)
[2017-01-19] MEDS ORDERED: ZIPRASIDONE MESYLATE INJ/PF 20 MG SDV IM ONE (16:00)
[2017-01-19] MEDS: ZIPRASIDONE MESYLATE INJ/PF 20 MG SDV IM PRN (19:53)
--- NOTE | 2017-01-19 20:06 | PDOC PROGRESS REPORT ---
Subjective Progress Note for:: 01/19/17 Subjective:: I had been asked by Dr. Guevara to see the patient consultation for elevated troponin I. The patient's chart was reviewed in detail. Unable to obtain a history from the patient since due to agitation she is being sedated but still gets agitated hence no history available. On review of the patient's chart the patient's blood pressure has been upwards of 200 at least 3 times with the highest being 240 O2 42/112. This most likely is the cause of the patient's troponin I. Will not do a formal consult as discussed with Dr. Guevara the hospitalist, who was canceled the consult. Later when the patient is more lucid would recommend that the patient have a Cardiolite stress test. Will not charge the patient for this. Thank you end of dictation Physical Exam Vital Signs: Temp Pulse Resp BP Pulse Ox 97.6 F 71 10 L 150/65 H 100 01/19/17 19:00 01/19/17 19:00 01/19/17 19:00 01/19/17 19:00 01/19/17 19:00 Intake & Output 01/18/17 01/19/17 01/20/17 06:59 06:59 06:59 Intake Total 1043 2985 1121 Output Total 1050 890 261 Balance -7 2095 860 Weight 103.5 kg 103.5 kg Results Laboratory Results: 01/19/17 04:15 01/19/17 04:15 01/19/17 01/19/17 04:15 04:15 WBC 12.6 H RBC 3.78 Hgb 11.7 L Hct 34.6 L MCV 92 MCH 31.1 MCHC 33.9 RDW 12.9 Plt Count 185 Seg Neutrophils % 75.6 Lymphocytes % 17.2 Monocytes % 6.2 Eosinophils % 0.0 Basophils % 1.0 Absolute Neutrophils 9.5 H Absolute Lymphocytes 2.2 Absolute Monocytes 0.8 Absolute Eosinophils 0.0 Absolute Basophils 0.1 Sodium 140.3 Potassium 3.7 Chloride 112 H Carbon Dioxide 21 L Anion Gap 7 BUN 33 H Creatinine 1.64 H Est GFR ( Amer) 39 L Est GFR (Non-Af Amer) 32 L Glucose 378 H Calcium 8.2 L 01/17/17 01/17/17 01/18/17 21:54 21:54 03:57 Creatine Kinase 95 CK-MB (CK-2) 0.49 4.69 H Troponin I 0.169 0.339 01/18/17 01/18/17 01/18/17 03:57 10:05 10:05 Creatine Kinase 2502 H 2447 H CK-MB (CK-2) 3.21 Troponin I 0.524 01/18/17 01/18/17 01/18/17 17:10 17:10 17:10 Creatine Kinase 2444 H CK-MB (CK-2) 2.07 Troponin I 0.667 01/18/17 01/18/17 23:31 23:31 Creatine Kinase 1567 H CK-MB (CK-2) 1.93 Troponin I 0.421 Impressions: Head CT 01/17/17 14:02 IMPRESSION: Limited study due to motion artifact. No significant intracranial abnormalities were identified. Chest X-Ray 01/17/17 14:08 IMPRESSION: NO ACUTE RADIOGRAPHIC FINDING IN THE CHEST. Head CTA 01/17/17 14:37 IMPRESSION: NO CTA EVIDENCE OF STENOSIS OR ANEURYSM OF THE [place]. Neck CTA 01/17/17 14:37 IMPRESSION: MINIMAL CALCIFIED [place]. OTHERWISE UNREMARKABLE CTA OF THE EXTRA- CRANIAL CAROTID AND VERTEBRAL ARTERIES. NO STENOSIS OR DISSECTION. KUB X-Ray 01/17/17 20:05 IMPRESSION: NG tube with the tip at the GE junction and the side hole at the distal esophagus, advancement by approximately 10 cm recommended. Hepatomegaly. Increased density overlying the right renal shadow, may represent renal calculus versus debris within the bowel.
[2017-01-19] MEDS: ATORVASTATIN CALCIUM 80 MG TABLET NG SCH (21:04)
[2017-01-20 04:05] LABS: ABSOLUTE BASOPHILS # (AUTO) 0.1 10^3/uL (0.0-0.2); ABSOLUTE LYMPHOCYTES (AUTO) 2.4 10^3/uL (0.5-4.7); ABSOLUTE MONOCYTES (AUTO) 0.8 10^3/uL (0.1-1.4); ABSOLUTE NEUT (AUTO) 6.7 10^3/uL (1.7-8.2); BASOPHILS % (AUTO) 0.8 % (0-2); EOSINOPHILS % (AUTO) 0.2 % (0-6); HEMATOCRIT 31.7 % (36.0-47.0); HEMOGLOBIN 11.1 g/dL (12.0-15.5); HGB HCT DIFFERENCE 1.6; LYMPHOCYTES % (AUTO) 23.9 % (13-45); MEAN CORPUSCULAR HEMOGLOBIN 31.9 pg (27.0-33.4); MEAN CORPUSCULAR VOLUME 91 fl (80-97); MONOCYTES % (AUTO) 8.2 % (3-13); RED BLOOD COUNT 3.48 10^6/uL (3.72-5.28); RED CELL DISTRIBUTION WIDTH 12.7 % (11.5-14.0); SEGMENTED NEUTROPHILS % (AUTO) 66.9 % (42-78)
[2017-01-20 04:17] LABS: BLOOD UREA NITROGEN 35 mg/dL (7-20); CALCIUM 8.1 mg/dL (8.4-10.2); CARBON DIOXIDE 26 mmol/L (22-30); CREATININE RESULT 1.46 mg/dL (0.52-1.25); GLUCOSE 177 mg/dL (75-110)
[2017-01-20] MEDS: ZIPRASIDONE MESYLATE INJ/PF 20 MG SDV IM PRN ×2 (04:20→13:20)
[2017-01-20 04:29] LABS: CHLORIDE 116 mmol/L (98-107); POTASSIUM 3.7 mmol/L (3.6-5.0); SODIUM 144.7 mmol/L (137-145)
[2017-01-20 04:33] LABS: ANION GAP 3 (5-19)
[2017-01-20] MEDS: HEPARIN SOD (PORCINE) 5,000 UNIT/ML 1 ML SYRINGE SUBCUT SCH ×3 (05:34→22:06)
[2017-01-20] MEDS: NORMAL SALINE 1000 ML 1,000 ML IV PRN ×2 (05:45→14:32)
--- NOTE | 2017-01-20 08:30 | EEG PRO FEE REPORT ---
EEG INTERPRETATION PATIENT NAME: BETH OLIVEROS ROOM#: [id number] ORDER#: [id number] DATE OF STUDY: 01/19/2017 : 1960 REFERRING MD: Ihsan Guevara MD DIAGNOSIS: Seizure REPORT The background activity is quite slow down to 2-3 Hz delta for large portions of the tracing of equal amplitude and symmetry. No clear epileptiform activity is noted. At times the record seems to speed up a little bit and be associated with motion artifact. IMPRESSION For the most part however remains generally slow as per above implying a widespread cerebral dysfunction such as from a toxic or metabolic or other generalized cause of cerebral dysfunction. INTERPRETING PHYSICIAN: LUNA KU M.D. /: MTEFFT TT: [id number] ID: [id number] /: [id number] TD: [id number] JOB: [id number] cc:Panchito GUILLAUME M.D. >
--- NOTE | 2017-01-20 08:44 | PDOC PROGRESS REPORT ---
Subjective Progress Note for:: 01/20/17 Subjective:: Patient is awake and alert. Engaging in conversation. Argumentative. No reported temperature spikes, respiratory distress, nausea or vomiting, tremors, chills or fever. No choking sensation reported. Remains on nasogastric tube and Meier catheter. Physical Exam Vital Signs: Temp Pulse Resp BP Pulse Ox 98.6 F 95 13 169/78 H 100 01/20/17 08:00 01/20/17 08:00 01/20/17 08:00 01/20/17 08:00 01/20/17 08:00 Intake & Output 01/19/17 01/20/17 01/21/17 06:59 06:59 06:59 Intake Total 2985 2663 Output Total 890 796 400 Balance 2095 1867 -400 Weight 103.5 kg 103.5 kg General appearance: PRESENT: obese, other - Argumentative, easily gets agitated , demanding. Head exam: PRESENT: normocephalic Eye exam: PRESENT: EOMI Mouth exam: PRESENT: moist, neck supple Neck exam: ABSENT: JVD Respiratory exam: PRESENT: clear to auscultation kayleen. ABSENT: rhonchi, wheezes Cardiovascular exam: PRESENT: RRR. ABSENT: gallop GI/Abdominal exam: PRESENT: normal bowel sounds, soft. ABSENT: distended - Obese, tenderness Extremities exam: ABSENT: pedal edema Neurological exam: PRESENT: alert, awake Focused psych exam: PRESENT: restlessness - Slightly, wanting to remove nasogastric tube, restraints. Skin exam: PRESENT: dry, warm. ABSENT: cyanosis Results Laboratory Results: 01/20/17 03:50 01/20/17 03:50 01/20/17 01/20/17 03:50 03:50 WBC 10.0 RBC 3.48 L Hgb 11.1 L Hct 31.7 L MCV 91 MCH 31.9 MCHC 35.0 RDW 12.7 Plt Count 155 Seg Neutrophils % 66.9 Lymphocytes % 23.9 Monocytes % 8.2 Eosinophils % 0.2 Basophils % 0.8 Absolute Neutrophils 6.7 Absolute Lymphocytes 2.4 Absolute Monocytes 0.8 Absolute Eosinophils 0.0 Absolute Basophils 0.1 Sodium 144.7 Potassium 3.7 Chloride 116 H Carbon Dioxide 26 Anion Gap 3 L BUN 35 H Creatinine 1.46 H Est GFR ( Amer) 45 L Est GFR (Non-Af Amer) 37 L Glucose 177 H Calcium 8.1 L 01/17/17 01/17/17 01/18/17 21:54 21:54 03:57 Creatine Kinase 95 CK-MB (CK-2) 0.49 4.69 H Troponin I 0.169 0.339 01/18/17 01/18/17 01/18/17 03:57 10:05 10:05 Creatine Kinase 2502 H 2447 H CK-MB (CK-2) 3.21 Troponin I 0.524 01/18/17 01/18/17 01/18/17 17:10 17:10 17:10 Creatine Kinase 2444 H CK-MB (CK-2) 2.07 Troponin I 0.667 01/18/17 01/18/17 23:31 23:31 Creatine Kinase 1567 H CK-MB (CK-2) 1.93 Troponin I 0.421 Impressions: Head CT 01/17/17 14:02 IMPRESSION: Limited study due to motion artifact. No significant intracranial abnormalities were identified. Chest X-Ray 01/17/17 14:08 IMPRESSION: NO ACUTE RADIOGRAPHIC FINDING IN THE CHEST. Head CTA 01/17/17 14:37 IMPRESSION: NO CTA EVIDENCE OF STENOSIS OR ANEURYSM OF THE [place]. Neck CTA 01/17/17 14:37 IMPRESSION: MINIMAL CALCIFIED [place]. OTHERWISE UNREMARKABLE CTA OF THE EXTRA- CRANIAL CAROTID AND VERTEBRAL ARTERIES. NO STENOSIS OR DISSECTION. KUB X-Ray 01/17/17 20:05 IMPRESSION: NG tube with the tip at the GE junction and the side hole at the distal esophagus, advancement by approximately 10 cm recommended. Hepatomegaly. Increased density overlying the right renal shadow, may represent renal calculus versus debris within the bowel. Assessment & Plan - Diagnosis (1) Hypertensive emergency Is this a current diagnosis for this admission?: Yes (2) Left-sided weakness Is this a current diagnosis for this admission?: Yes (3) Hypokalemia Is this a current diagnosis for this admission?: Yes (4) Fever Qualifiers: Fever type: unspecified Qualified Code(s): R50.9 - Fever, unspecified Is this a current diagnosis for this admission?: Yes (5) Diabetes mellitus type 2 in obese Is this a current diagnosis for this admission?: Yes (6) Seizure disorder Is this a current diagnosis for this admission?: Yes (7) Hyperlipidemia Qualifiers: Hyperlipidemia type: unspecified Qualified Code(s): E78.5 - Hyperlipidemia, unspecified Is this a current diagnosis for this admission?: Yes (8) GERD (gastroesophageal reflux disease) Qualifiers: Esophagitis presence: without esophagitis Qualified Code(s): K21.9 - Gastro-esophageal reflux disease without esophagitis Is this a current diagnosis for this admission?: Yes (9) Schizophrenia Qualifiers: Schizophrenia type: unspecified Qualified Code(s): F20.9 - Schizophrenia, unspecified Is this a current diagnosis for this admission?: Yes - Time Time Spent with patient: 25-34 minutes - Plan Summary Plan Summary: Discontinue nasogastric tube, Meier catheter, restraints. Continue when necessary Geodon. Consult psychiatry for further evaluation and management. Continue sitter. Swallowing evaluation. Transfer to [facility]. Continue IV fluids , and recheck creatinine in the morning. Patient's elevation in troponin likely secondary to uncontrolled hypertension, together with renal insufficiency and seizure. Discussed with cardiology. Stress test was recommended, however patient unlikely to cooperate, just like she has not cooperated w/ having an MRI.
[2017-01-20] MEDS: LOSARTAN POTASSIUM 50 MG TABLET PO SCH (10:22)
[2017-01-20] MEDS: ASPIRIN 325 MG TABLET NG SCH (10:22)
[2017-01-20] MEDS: TOPIRAMATE 100 MG TABLET PO SCH ×2 (10:23→22:04)
[2017-01-20] MEDS: LEVETIRACETAM 500 MG/NACL-ISO 500 MG/100 ML RTUPB IV SCH ×2 (10:23→22:05)
[2017-01-20] MEDS: INSULIN LISPRO 100 UNIT/ML 3 ML VIAL SUBCUT PRN (12:17)
[2017-01-20] MEDS ORDERED: HALOPERIDOL LACTATE INJ 5 MG/1 ML VIAL IM PRN (14:05)
[2017-01-20] MEDS: ATORVASTATIN CALCIUM 80 MG TABLET NG SCH (22:05)
[2017-01-21] MEDS: ZIPRASIDONE MESYLATE INJ/PF 20 MG SDV IM PRN
[2017-01-21] MEDS: NORMAL SALINE 1000 ML 1,000 ML IV PRN (00:18)
[2017-01-21] MEDS ORDERED: POTASSIUM CHLORIDE 20 MEQ/15 ML UDCUP ONE ×3 (09:44→14:41)
[2017-01-21] MEDS: TOPIRAMATE 100 MG TABLET PO SCH (10:00)
[2017-01-21] MEDS: LOSARTAN POTASSIUM 50 MG TABLET PO SCH (10:00)
[2017-01-21] MEDS: LEVETIRACETAM 500 MG/NACL-ISO 500 MG/100 ML RTUPB IV SCH (10:00)
[2017-01-21] MEDS: ASPIRIN 325 MG TABLET NG SCH (11:00)
[2017-01-21] MEDS: HEPARIN SOD (PORCINE) 5,000 UNIT/ML 1 ML SYRINGE SUBCUT SCH ×2 (14:00→22:42)
--- NOTE | 2017-01-21 16:37 | PROGRESS NOTE E ---
Progress Note NAME: BETH OLIVEROS : 1960 AGE: 56Y DATE: 01/21/2017 ROOM: 318 SUBJECTIVE: The patient is more cooperative today and calm. No agitation reported last night. Patient off restraints, Meier catheter, and nasogastric tube. Tolerating oral intake. Patient, however, feels weak. No reported temperature spikes or respiratory distress. No reported focal weakness. No reported seizure activity. OBJECTIVE: VITAL SIGNS: Blood pressure 166/77, pulse 83, respirations 16, temperature 98.7. GENERAL: The patient is awake. She is not in acute distress. HEENT: Oral mucosa is slightly dry. NECK: Supple with no JVD or bruit. LUNGS: Clear to auscultation bilateral with no wheezing or rales. HEART: Regular with no gallops. ABDOMEN: Flabby, soft, nontender, nondistended. Bowel sounds are present. EXTREMITIES: Lower extremity not edematous. Mucosa and nail beds with no cyanosis. LABORATORY: Potassium of 2.9. Creatinine trending down. ASSESSMENT: 1. HYPERTENSIVE EMERGENCY. 2. LEFT-SIDED WEAKNESS, RESOLVED. 3. HYPOKALEMIA. 4. DIABETES MELLITUS TYPE 2 IN OBESE PATIENT. 5. SEIZURE DISORDER. 6. HYPERLIPIDEMIA. 7. GASTROESOPHAGEAL REFLUX DISEASE. 8. SCHIZOPHRENIA. PLAN: We will begin physical therapy. Discontinue intravenous Keppra and shift to oral. In the meantime, awaiting Psychiatry evaluation for her schizophrenia. Continue gentle IV hydration. Replace electrolytes and recheck potassium and creatinine in the morning. Continue supportive care. We will begin physical therapy. DICTATING PHYSICIAN: MISHEL RANDHAWA M.D. [id number] PHY#: [id number] ID: [id number] JOB#: [id number] ACCT: [id number] cc: >
[2017-01-21] MEDS ORDERED: CITALOPRAM HYDROBROMIDE 20 MG TABLET ONE (18:19)
[2017-01-21] MEDS: LEVETIRACETAM 500 MG TABLET PO SCH (22:42)
[2017-01-21] MEDS: ATORVASTATIN CALCIUM 80 MG TABLET NG SCH (22:42)
[2017-01-22] MEDS: HEPARIN SOD (PORCINE) 5,000 UNIT/ML 1 ML SYRINGE SUBCUT SCH ×2 (06:10→13:33)
[2017-01-22] MEDS ORDERED: TOPIRAMATE 100 MG TABLET PO SCH (10:00)
[2017-01-22] MEDS ORDERED: CITALOPRAM HYDROBROMIDE 20 MG TABLET PO SCH (10:00)
[2017-01-22] MEDS: ASPIRIN 325 MG TABLET NG SCH (10:07)
[2017-01-22] MEDS: LEVETIRACETAM 500 MG TABLET PO SCH (10:08)
[2017-01-22] MEDS: LOSARTAN POTASSIUM 50 MG TABLET PO SCH (10:08)
[2017-01-22] MEDS ORDERED: LOSARTAN POTASSIUM 50 MG TABLET PO ONE (11:15)
[2017-01-22] MEDS ORDERED: AMLODIPINE BESYLATE 5 MG TABLET PO ONE (11:15)
[2017-01-22] MEDS: INSULIN LISPRO 100 UNIT/ML 3 ML VIAL SUBCUT PRN ×2 (13:33→17:01)
[2017-01-22 17:27] VITALS: BP 165/76
[2017-01-22] MEDS ORDERED: ATORVASTATIN CALCIUM 80 MG TABLET PO SCH (22:00)
--- NOTE | 2017-01-23 08:03 | DISCHARGE SUMMARY E ---
Discharge Summary NAME: BETH OLIVEROS : 1960 AGE: 56Y ADMITTED: 01/17/2017 DISCHARGED: 01/22/2017 FINAL DIAGNOSES: 1. Seizure disorder. 2. Left-sided weakness secondary to seizure. 3. Hypertensive emergency. 4. Type-2 diabetes mellitus in obese patient. 5. Gastroesophageal reflux disease. 6. Schizophrenia. 7. Hyperlipidemia. 8. Hypokalemia. DISCHARGE INSTRUCTIONS: 1. Diet is low-fat, low-salt, no concentrated sweets. 2. Activity as tolerated; balance activity with rest. 3. Home health for physical therapy. 4. Appointment followup with primary care physician, [facility], 01/31/2017 at 3 in the afternoon. 5. Followup with psychiatry in 1-2 weeks. DISCHARGE MEDICATIONS: 1. Norvasc 5 mg p.o. daily. 2. Celexa 20 mg p.o. 3. Keppra 500 mg p.o. twice a day. 4. Topamax 100 mg p.o. daily. 5. Vitamin D2 50,000 units p.o. as directed. 6. Aspirin 325 mg p.o. daily. 7. Losartan 50 mg p.o. daily. REASON FOR ADMISSION: Altered mental status. HISTORY OF PRESENT ILLNESS AND SIGNIFICANT FINDING: The patient is a 56-year-old female with a history of hypertension, diabetes, schizophrenia, morbid obesity, as well as seizure, in her usual state of health until there was a reported abrupt change in her mental status. It started with a fall without any physical injury, subsequently with left-sided jesús-neglect and right-sided gaze and left-sided weakness. The patient was brought to the emergency room where she was found to have a blood pressure of 216/[address] scan was unremarkable. The patient was started on nicardipine drip, was aphasic, and was referred for admission. On examination, she is morbidly obese, reportedly disheveled, no signs of head trauma reported. There was right-sided gaze. The patient apparently reportedly able to respond. INITIAL LABORATORY EXAMINATION: WBC 12.9, hemoglobin and hematocrit 13.6 and 39.2, respectively, platelet count of 230,000. Creatinine 1.5. The patient was subsequently admitted for further management. For details, please refer to history and physical examination performed by the admitting physician. HOSPITAL COURSE: The patient was admitted to ICU. The patient was continued on nicardipine drip until blood pressure got controlled. However, the patient was noted to have shaking on the right side mainly on the upper extremity more than the lower extremity. The patient's condition likely secondary to seizure. The patient was begun on Keppra. The patient was likewise given Dilantin loading dose of one time. Eventually the patient's symptoms of right-sided gaze and right-sided shaking resolved. The patient started to move his left upper extremity as well. Her speech was fluent. MRI was tried but patient unable to cooperate. An EEG was performed but did not reveal any seizure activity. The patient was noted to have hypokalemia and this was replaced. Eventually with the above measures and treatment, the patient's seizure activity got controlled. The patient was referred to psychiatry service for her schizophrenia and aggressive behavior. Initially the patient was placed on Geodon and as-needed Haldol. Psychiatry evaluated the patient eventually. Her initial Meier catheter placed while the patient was in the ICU as well as restraints when she was agitated were discontinued. She was placed on nasogastric tube as well for medication administration and this was likewise discontinued. Subsequently the patient's behavior improved. She was transferred to [facility]. Psychiatry recommended discontinuation of Haldol and Geodon. Celexa was added to the treatment regimen and likewise advised to stop higher doses of Topamax and placed her on 100 mg daily. The patient's mood and behavior significantly improved. The patient was cooperative for 48 hours with no aggressive or agitation. She was eventually cleared by psychiatry service to be discharged. In terms of the patient's left-sided weakness, this has completely resolved. Likely there is no acute stroke event noted. In terms of the patient's blood pressure, the patient was begun on amlodipine. The patient was continued on her Losartan. The rest of the hospital stay was unremarkable. The patient eventually discharged home improved with above instructions. DICTATING PHYSICIAN: MISHEL RANDHAWA M.D. [id number] PHY#: [id number] ID: [id number] JOB#: [id number] ACCT: [id number] cc:ELVIS RANDOLPH M.D., ROBERTO M.D. >
[2017-01-23] MEDS ORDERED: LOSARTAN POTASSIUM 50 MG TABLET PO SCH (10:00)
[2017-01-23] MEDS ORDERED: AMLODIPINE BESYLATE 5 MG TABLET PO SCH (10:00)
[2017-01-23] MEDS ORDERED: ASPIRIN 325 MG TABLET PO SCH (11:00)
[2017-01-24 19:55] LABS: BLOOD UREA NITROGEN 16 mg/dL (7-20); CALCIUM 8.3 mg/dL (8.4-10.2); CREATININE RESULT 0.95 mg/dL (0.52-1.25); GLUCOSE 170 mg/dL (75-110)
[2017-01-24 19:57] LABS: ANION GAP 9 (5-19); CARBON DIOXIDE 21 mmol/L (22-30); CHLORIDE 113 mmol/L (98-107); POTASSIUM 2.9 mmol/L (3.6-5.0); SODIUM 142.6 mmol/L (137-145)
== END 2017-01-22 18:28 | disposition home health service (06) | DRG 305 ==
LOC: ER 13:48 → EDBD 19:47 → EH 19:47 → ICU 23:51 → 3W 01-20 15:10
PROVIDERS: ADMIT Internal Medicine; ATTEND Internal Medicine
PROC: 0D9670Z Drainage of Stomach with Drainage Device, Via Natural or Artificial Opening (ICD-10-PCS; principal; 2017-01-17)
DX: I16.1 Hypertensive emergency (principal); R47.01 Aphasia; G40.909 Epilepsy, unspecified, not intractable, without status epilepticus; I10 Essential (primary) hypertension; E11.9 Type 2 diabetes mellitus without complications; F31.9 Bipolar disorder, unspecified; F20.9 Schizophrenia, unspecified; S00.31XA Abrasion of nose, initial encounter; W19.XXXA Unspecified fall, initial encounter; E66.01 Morbid (severe) obesity due to excess calories; Z68.36 Body mass index [BMI] 36.0-36.9, adult; K21.9 Gastro-esophageal reflux disease without esophagitis; E78.5 Hyperlipidemia, unspecified; E87.6 Hypokalemia; R53.1 Weakness; G43.909 Migraine, unspecified, not intractable, without status migrainosus; F17.210 Nicotine dependence, cigarettes, uncomplicated; Y92.019 Unspecified place in single-family (private) house as the place of occurrence of the external cause; Z78.1 Physical restraint status; Z79.82 Long term (current) use of aspirin; Z79.899 Other long term (current) drug therapy; Z91.14 Patient's other noncompliance with medication regimen; Z79.4 Long term (current) use of insulin; Z88.0 Allergy status to penicillin; Z88.8 Allergy status to other drugs, medicaments and biological substances
CPT/HCPCS: 36415; 70450; 70496; 70498; 71010; 74000; 80048; 80053; 80307; 81001; 82550; 82553; 82962; 84484; 85025; 85610; 85730; 87040; 87086; 93005; 93010; 95819; 96361; 96365; 96366; 96372; 96375; 99291; J1165; J1170; J1630; J1644; J1815; J1953; J2060; J2270; J3480; J3486; J3490; J7030; J7050

== ENCOUNTER 2018-05-24 22:12 | Emergency (ER) | payer MEDICARE ==
[2018-05-24] MEDS ORDERED: ONDANSETRON 4 MG TAB.RAPDIS PO ONE (22:51)
[2018-05-24] MEDS ORDERED: OXYCODONE-ACETAMINOPHEN 5-325 MG TABLET PO ONE (22:51)
--- NOTE | 2018-05-24 22:53 | ER Document Report ---
ED Medical Screen (RME) - General Chief Complaint: Hip Injury Stated Complaint: FALL/HIP INJURY Time Seen by Provider: 05/24/18 22:51 Notes: 57-year-old female chief complaint of fall and right hip pain. She states she was standing in the shower at the care home and slipped, landed on her right hip and buttock mainly, denies back pain, denies head injury. She also states that she has had pain in her lower abdomen over the past few days. TRAVEL OUTSIDE OF THE [place] IN LAST 30 DAYS: No - Related Data Allergies/Adverse Reactions: levomilnacipran Allergy (Verified 01/19/17 18:01) lorazepam [From Ativan] Allergy (Verified 01/17/17 16:16) Penicillins Allergy (Verified 01/17/17 16:18) Past Medical History - Past Medical History Cardiac Medical History: Reports: Hx Hypertension Neurological Medical History: Reports: Hx Migraine, Hx Seizures Endocrine Medical History: Reports: Hx Diabetes Mellitus Type 2 GI Medical History: Reports: Hx Gastroesophageal Reflux Disease Psychiatric Medical History: Reports: Hx Depression Physical Exam - Abdominal Tenderness: Tender - Tender in the mid to lower abdomen, worse on the right - Extremities General lower extremity: Other - Tender over the right hip/groin area
--- NOTE | 2018-05-24 23:12 | RADIOLOGY REPORT (SQ) ---
EXAM DESCRIPTION: XR HIP 2 OR MORE VIEWS COMPLETED DATE/TME: 05/24/2018 22:22 CLINICAL HISTORY: 57 years, Female, Fall Injury COMPARISON: EXAM DESCRIPTION: CLINICAL HISTORY: Fall Injury COMPARISON: None FINDINGS: 3 view(s) submitted. There is extensive osteophytic formation of each acetabular roof. Degenerative changes are seen elsewhere.No fracture or dislocation is identified. Bone marrow attenuation is unremarkable. No radiopaque foreign body is identified. IMPRESSION: No acute fracture or dislocation. NUMBER OF VIEWS: TECHNIQUE: LIMITATIONS: None. FINDINGS: IMPRESSION: 2010 [employer]- All Rights Reserved
[2018-05-24 23:35] LABS: ABSOLUTE EOSINOPHILS # (AUTO) 0.2 10^3/uL (0.0-0.6); ABSOLUTE LYMPHOCYTES (AUTO) 2.4 10^3/uL (0.5-4.7); ABSOLUTE MONOCYTES (AUTO) 0.5 10^3/uL (0.1-1.4); ABSOLUTE NEUT (AUTO) 3.8 10^3/uL (1.7-8.2); BASOPHILS % (AUTO) 0.5 % (0-2); EOSINOPHILS % (AUTO) 2.5 % (0-6); HEMATOCRIT 31.8 % (36.0-47.0); HEMOGLOBIN 10.7 g/dL (12.0-15.5); MEAN CORPUSCULAR HEMOGLOBIN 31.3 pg (27.0-33.4); MEAN CORPUSCULAR HGB CONC 33.6 g/dL (32.0-36.0); MEAN CORPUSCULAR VOLUME 93 fl (80-97); MONOCYTES % (AUTO) 6.7 % (3-13); PLATELET COUNT 253 10^3/uL (150-450); RED BLOOD COUNT 3.42 10^6/uL (3.72-5.28); RED CELL DISTRIBUTION WIDTH 13.4 % (11.5-14.0); SEGMENTED NEUTROPHILS % (AUTO) 55.3 % (42-78); TOTAL CELLS COUNTED % (AUTO) 100 %
[2018-05-24 23:48] LABS: ALANINE AMINOTRANSFERASE 26 U/L (9-52); ALKALINE PHOSPHATASE 89 U/L (38-126); ASPARTATE AMINO TRANSFERASE 24 U/L (14-36); BILIRUBIN,DIRECT 0.4 mg/dL (0.0-0.4); BILIRUBIN,TOTAL 0.4 mg/dL (0.2-1.3); BLOOD UREA NITROGEN 23 mg/dL (7-20); CALCIUM 9.1 mg/dL (8.4-10.2); CARBON DIOXIDE 26 mmol/L (22-30); GLUCOSE 131 mg/dL (75-110); POTASSIUM 4.3 mmol/L (3.6-5.0); TOTAL PROTEIN 6.3 g/dL (6.3-8.2)
[2018-05-24 23:54] LABS: ANION GAP 3 (5-19); CHLORIDE 113 mmol/L (98-107); SODIUM 142.2 mmol/L (137-145)
[2018-05-25] MEDS ORDERED: KETOROLAC TROMETHAMINE INJ/PF 30 MG/1 ML SDV IM ONE (02:21)
[2018-05-25 02:30] LABS: APPEARANCE,URINE CLEAR
[2018-05-25 02:31] LABS: BILIRUBIN,URINE SMALL (NEGATIVE); COLOR,URINE YELLOW; GLUCOSE, URINE 50 mg/dL (NEGATIVE); KETONES,URINE NEGATIVE (NEGATIVE); LEUKOCYTE ESTERASE,URINE NEGATIVE (NEGATIVE); NITRITE,URINE NEGATIVE (NEGATIVE); PROTEIN,URINE >=500 mg/dL (NEGATIVE); URINE SPECIFIC GRAVITY 1.027; UROBILINOGEN,URINE NEGATIVE mg/dL (<2.0)
--- NOTE | 2018-05-25 03:14 | RADIOLOGY REPORT (SQ) ---
EXAM DESCRIPTION: CT ABDOMEN PELVIS WITHOUT IV CONTRAST COMPLETED DATE/TME: 05/25/2018 02:22 CLINICAL HISTORY: fell injuring right hip. C/O RLQ pelvic pain COMPARISON: None Available. TECHNIQUE: CT of the abdomen and pelvis without IV contrast. Evaluation of the solid organs and vasculature is suboptimal due to lack of IV contrast. DLP: 1547 mGy-cm FINDINGS: Lung Bases: Incompletely visualized nodular opacity in the left lung base measuring 0.6 cm. Bones: No destructive bone lesions identified. Degenerative change of the spine and hips. Abdomen: Liver: The liver has normal size and density. Gallbladder: No calcified gallstones. Spleen, Pancreas, and Adrenal Glands: The spleen, pancreas, and adrenal glands are unremarkable. Kidneys: The kidneys have normal size and contour without evidence of hydronephrosis. No obstructing ureteral calculi. Vasculature: Aortoiliac atherosclerosis. IVC is unremarkable. Stomach: The stomach and duodenum have normal course. Other: No free intraperitoneal air. No free fluid or lymphadenopathy. Pelvis: Bladder: Urinary bladder is unremarkable. Bowel: No dilated loops of large or small bowel. Appendix: Normal appendix. Pelvis: Hysterectomy. IMPRESSION: 1. No acute inflammatory or obstructive process identified. 2. No acute fracture of the right hip. Osteoarthritic change of the hips bilaterally. This exam was performed according to our departmental dose-optimization program, which includes automated exposure control, adjustment of the mA and/or kV according to patient size and/or use of iterative reconstruction technique.
--- NOTE | 2018-05-25 03:23 | ER Document Report ---
ED General - General Chief Complaint: Hip Injury Stated Complaint: FALL/HIP INJURY Time Seen by Provider: 05/24/18 22:51 Information source: Patient TRAVEL OUTSIDE OF THE [place] IN LAST 30 DAYS: No - HPI Notes: 57-year-old white female presents with abdominal pain in the right lower abdomen that started about 3 or 4 days ago then now she has right and left hip and buttock pain [facility] and [facility] the [facility]. She has no leg symptoms but there is pain is increased with leg movement and torso movement. Denies dysuria or hematuria. No nausea vomiting or stool change. Describes it somewhat as spasmodic. No fever. No anterior chest pain. No upper back pain neck discomfort or head injury, loss of consciousness. - Related Data Allergies/Adverse Reactions: iodine Allergy (Verified 05/24/18 22:54) levomilnacipran Allergy (Verified 05/24/18 22:54) lorazepam [From Ativan] Allergy (Verified 05/24/18 22:54) Penicillins Allergy (Verified 05/24/18 22:54) Past Medical History - Social History Smoking Status: Unknown if Ever Smoked Family History: Reviewed & Not Pertinent Patient has suicidal ideation: No Patient has homicidal ideation: No - Past Medical History Cardiac Medical History: Reports: Hx Congestive Heart Failure, Hx Hypertension Pulmonary Medical History: Reports: Hx Bronchitis Neurological Medical History: Reports: Hx Migraine, Hx Seizures Endocrine Medical History: Reports: Hx Diabetes Mellitus Type 2 Renal/ Medical History: Denies: Hx Peritoneal Dialysis GI Medical History: Reports: Hx Gastroesophageal Reflux Disease Psychiatric Medical History: Reports: Hx Depression Review of Systems - Review of Systems -: Yes All other systems reviewed and negative Physical Exam - Notes Notes: GENERAL: VS as per nursing doc. Well-appearing, well-nourished and in no acute distress. HEAD: Atraumatic, normocephalic. EYES: Pupils equal round and reactive to light, extraocular movements intact, sclera anicteric, no conjunctival injection or discharge. ENT: Nares patent, oropharynx clear without exudates, moist mucous membranes. NECK: Normal range of motion, supple without lymphadenopathy. LUNGS: Breath sounds clear to auscultation bilaterally and equal. No wheezes rales or rhonchi. HEART: Regular rate and rhythm without murmurs. ABDOMEN: Soft, mild generalized right lower abdominal tenderness, normoactive bowel sounds. No guarding, no rebound. No masses appreciated. No Allen sign. BACK: Moderate tenderness diffusely from the lumbar region to the buttock region bilaterally. EXTREMITIES: Some bilateral pain with passive and active hip range of motion testing, it does not appear to be significantly worse with external and internal rotation. No calf tenderness, no edema. NEUROLOGICAL: Normal speech. Normal sensory and motor exams. No gross cerebellar abnormalities. PSYCH: Normal mood, normal affect. SKIN: Warm, dry, normal turgor, no lesions noted. Course - Re-evaluation Re-evalutation: 05/25/18 03:21 I reviewed findings with the patient for follow-up including her anemia. She knows she has chronic kidney disease and is not to use contrast. Urine had a few white blood cells we will place her on antibiotics though I do not believe this is the complete because of all of her symptoms particularly that she has such generalized pain. On recheck I awaken her and she appears comfortable. She understands follow-up needs. - Laboratory Result Diagrams: 05/24/18 23:22 05/24/18 23:22 Laboratory results interpreted by me: 05/24/18 05/24/18 05/25/18 23:22 23:22 02:10 RBC 3.42 L Hgb 10.7 L Hct 31.8 L Chloride 113 H Anion Gap 3 L BUN 23 H Est GFR ( Amer) 55 L Est GFR (Non-Af Amer) 46 L Glucose 131 H Albumin 3.0 L Urine Protein >=500 H Urine Glucose (UA) 50 H Urine Bilirubin SMALL H - Diagnostic Test Radiology reviewed: Image reviewed, Reports reviewed - No significant traumatic abnormality noted. Discharge - Discharge Clinical Impression: Abdominal pain, Pelvic pain Condition: Good Disposition: HOME, SELF-CARE Additional Instructions: Please return for emergency or concern. Use caution with the pain medication as it can cause unsteadiness, sedation and has addiction potential. Contact your primary care physician for follow-up in the next couple of days. Prescriptions: Tramadol HCl 50 mg PO Q6H PRN #12 tablet PRN Reason: For Pain
[2018-05-25 04:51] VITALS: BP 155/76
== END 2018-05-25 04:51 | disposition home or self-care (01) ==
LOC: ER 22:12
DX: R10.2 Pelvic and perineal pain (principal); I13.0 Hypertensive heart and chronic kidney disease with heart failure and stage 1 through stage 4 chronic kidney disease, or unspecified chronic kidney disease; I50.9 Heart failure, unspecified; N18.9 Chronic kidney disease, unspecified
CPT/HCPCS: 99284; 96372; 36415; 85025; 80053; 81001; 73502; 74176; A9270 ×2; J1885; S0119